=== PATIENT | female | born 1955 | race Caucasian/White ===

== ENCOUNTER 2017-10-27 07:04 | Day surgery (SDC) | payer BC ==
[2017-10-27] MEDS ORDERED: Midazolam 1 MG/ML 2 ML SDV ONE (07:38)
[2017-10-27] MEDS ORDERED: Propofol 200 MG/20 ML SDV ONE (07:38)
[2017-10-27] MEDS ORDERED: fentaNYL 100 MCG/2 ML SDV ONE (07:38)
[2017-10-27] MEDS: Lactated Ringers 1,000 ML IV SCH (07:40)
--- NOTE | 2017-10-28 08:09 | PROC ---
DATE OF PROCEDURE: 10/27/2017 INDICATION: Chela is a 62-year-old female, who comes in for screening colonoscopy. She has a history of polyps in the past. The risks and benefits were explained. The patient was taken to the OR. PROCEDURE IN DETAIL: Anesthesia was given by nurse tube dispatcher. During the procedure, we used 2 mg of Versed, 2 mcg of fentanyl, and 200 mg of propofol. The Olympus 180L scope was used to place into the rectum and advanced under direct vision and continued in the rectum with minimal difficulty. Upon retraction, the tube noted no lesions, ulceration, or abnormality throughout the entire colon. The sigmoid and rectum were unremarkable as well. The tube was removed. The patient tolerated the procedure well. PREOPERATIVE DIAGNOSIS: History of colonic polyps. POSTOPERATIVE DIAGNOSIS: Normal colon from cecum to rectum. Routine screening should be done. Jordon Butt MD /[id number]
== END 2017-10-27 10:00 | disposition home or self-care (01) ==
LOC: JP.SDS 07:04
PROVIDERS: ATTEND Internal Medicine
DX: Z12.11 Encounter for screening for malignant neoplasm of colon (principal); F17.200 Nicotine dependence, unspecified, uncomplicated; Z86.010 Personal history of colon polyps
CPT/HCPCS: J2250; J2704; J3010; J7120

== ENCOUNTER 2017-10-28 12:01 | Inpatient (IN) | payer BC ==
--- NOTE | 2017-10-28 12:40 | PCM.HP ---
H&P History of Present Illness - General Date of Service: 10/28/17 Admit Problem/Dx: Admission Diagnosis/Problem Admission Diagnosis/Problem Abdominal pain Source of Information: Patient History Limitations: Reports: No Limitations - History of Present Illness Initial Comments - Free Text/Narative: Chela had a colonoscopy yesterday which was routine. She has had pain ever since the procedure. Out patient called her this morning and had her come in. A flat plate of the abd showed free air and a CT of the abd. with IV contrast showed the problem is most likely close the the rectum most likely. She is being admitted for surgery. Onset of Symptoms: Reports: Sudden Duration of Symptoms: Reports: Hour(s): Location: Reports: Abdomen Associated Symptoms: Reports: Weakness - Related Data Allergies/Adverse Reactions: Allergies Allergy/AdvReac Type Severity Reaction Status Date / Time No Known Allergies Allergy Verified 10/25/17 13:07 Home Medications: Home Meds Simvastatin 40 mg PO DAILY 10/25/17 [History] Past Medical History HEENT History: Reports: Impaired Vision Cardiovascular History: Reports: High Cholesterol Gastrointestinal History: Reports: Colon Polyp Genitourinary History: Reports: Other (See Below) Other Genitourinary History: Self-cath Musculoskeletal History: Reports: None Hematologic History: Reports: Anemia Oncologic (Cancer) History: Reports: Cervix - Infectious Disease History Infectious Disease History: Reports: Chicken Pox, Measles, Mumps, Pertussis ( Whooping Cough) - Past Surgical History HEENT Surgical History: Reports: Adenoidectomy, Tonsillectomy Cardiovascular Surgical History: Reports: None GI Surgical History: Reports: Appendectomy, Colonoscopy Female Surgical History: Reports: Cervical Conization, Hysterectomy, Salpingo -Oophorectomy, Other (See Below) Other Female Surgeries/Procedures: Cervical radiation Musculoskeletal Surgical History: Reports: Arthroscopic Procedure Oncologic Surgical History: Reports: None Social & Family History - Tobacco Use Smoking Status *Q: Former Smoker Years of Tobacco use: 35 Packs/Tins Daily: 1.5 Used Tobacco, but Quit: Yes Month/Year Tobacco Last Used: 2001 Second Hand Smoke Exposure: No - Caffeine Use Caffeine Use: Reports: Coffee - Alcohol Use Days Per Week of Alcohol Use: 2 Number of Drinks Per Day: 6 Total Drinks Per Week: 12 - Recreational Drug Use Recreational Drug Use: No H&P Review of Systems - Review of Systems: Review Of Systems: See Below General: Reports: Weakness, Decreased Appetite HEENT: Reports: No Symptoms Pulmonary: Reports: No Symptoms Cardiovascular: Reports: No Symptoms Gastrointestinal: Reports: Distension Genitourinary: Reports: No Symptoms Musculoskeletal: Reports: No Symptoms Skin: Reports: No Symptoms Psychiatric: Reports: No Symptoms Neurological: Reports: No Symptoms Exam - Exam Exam: See Below - Exam General: Alert, Oriented, 4 HEENT: PERRLA Neck: Supple Lungs: Clear to Auscultation, Normal Respiratory Effort Cardiovascular: Regular Rate, Regular Rhythm GI/Abdominal Exam: Distended, Guarding, Rigid, Tender Extremities: Normal Inspection, Normal Range of Motion, Non-Tender, No Pedal Edema, Normal Capillary Refill Peripheral Pulses: 1+: Radial (L), Radial (R) Skin: Warm, Dry, Intact Neuro Extensive - Mental Status: Alert, Oriented x3, Normal Mood/Affect, Normal Cognition Psychiatric: Alert, Normal Affect, Normal Mood Problem List Initiated/Reviewed/Updated: Yes Orders Last 24hrs: Active Orders 24 hr Category Date Time Status Patient Status [ADT] Routine ADT 10/28/17 12:28 Ordered Leon Catheter Insertion [Insert Urinary Catheter] [OM. Care 10/28/17 12:45 Ordered PC] Q24H Height and Weight [RC] UPON Care 10/28/17 12:28 Ordered Intake and Output [RC] QSHIFT Care 10/28/17 12:31 Ordered Oxygen Therapy [RC] PRN Care 10/28/17 12:28 Ordered Urinary Catheter Assessment [RC] ASDIRECTED Care 10/28/17 12:34 Ordered VTE/DVT Education [RC] Per Unit Routine Care 10/28/17 12:28 Ordered Vital Signs [RC] Q4H Care 10/28/17 12:28 Ordered Nothing per Oral Now Diet [DIET] Diet 10/28/17 Dinner Ordered Resuscitation Status Routine Resus Stat 10/28/17 12:28 Ordered Assessment/Plan Comment:: Assessment/Plan: #1. Abd pain with free air: I have contracted Dr. Robert Hernandez who will take her to surgery and repair the wolon ruture probably in the rectal sigmoid area. #2. HLD: On simvastatin #3. 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
[2017-10-28] MEDS ORDERED: Naloxone 0.4 MG/ML SDV IV PRN (12:42)
[2017-10-28] MEDS: HYDROmorphone/Normal Saline 15 MG/30 ML PCA IV PRN (12:56)
[2017-10-28] MEDS ORDERED: Dexamethasone 4 MG/ML SDV ONE (13:17)
[2017-10-28] MEDS ORDERED: Ondansetron 4 MG/2 ML SDV ONE (13:17)
[2017-10-28] MEDS ORDERED: Glycopyrrolate 0.2 MG/ML 5 ML MDV ONE (13:17)
[2017-10-28] MEDS ORDERED: Propofol 200 MG/20 ML SDV ONE (13:17)
[2017-10-28] MEDS ORDERED: Neostigmine Methylsulfate 1 MG/ML 5 ML Syringe ONE (13:17)
[2017-10-28] MEDS ORDERED: Succinylcholine 200 MG/10 ML MDV ONE (13:17)
[2017-10-28] MEDS ORDERED: Rocuronium 50 MG/5 ML Vial ONE (13:17)
[2017-10-28] MEDS ORDERED: fentaNYL 250 MCG/5 ML SDV ONE ×2 (13:20→18:12)
[2017-10-28] MEDS ORDERED: Lactated Ringers 1,000 ML IV SCH (14:45)
[2017-10-28] MEDS: cefOXitin 2 GM in Sodium Chloride 0.9% 50 ML IV SCH ×2 (15:09→22:26)
[2017-10-28] MEDS ORDERED: Aztreonam/Dextrose-Water 1 GM in Premix Bag 1 BAG IV ONE (15:30)
[2017-10-28] MEDS ORDERED: Ketamine 500 MG/5 ML MDV IV SCH (15:30)
[2017-10-28] MEDS ORDERED: Ropivacaine 30 ML, Dexamethasone 8 MG, EPINEPHrine 0.4 MG, Sodium Chloride 0.9% 47.6 ML NERVRT SCH ×4 (15:30)
[2017-10-28] MEDS ORDERED: Lactated Ringers 1,000 ML ONE (17:55)
[2017-10-28] MEDS ORDERED: Meropenem 500 MG SDV ONE ×2 (17:57→18:20)
[2017-10-28] MEDS ORDERED: hydrOXYzine HCl 100 MG/2 ML SDV IM PRN (20:51)
[2017-10-28] MEDS: Dextrose 5%-Lactated Ringers 1,000 ML IV SCH (22:28)
[2017-10-28] MEDS ORDERED: Sodium Chloride 0.9% 0 ML ONE (23:39)
[2017-10-28] MEDS ORDERED: Sodium Chloride 0.9% 100 ML ONE (23:41)
[2017-10-28] MEDS: Pantoprazole 40 MG Vial IV SCH (23:49)
[2017-10-29] MEDS ORDERED: Aztreonam/Dextrose-Water 1 GM in Premix Bag 1 BAG IV SCH ×2
[2017-10-29] MEDS: cefOXitin 2 GM in Sodium Chloride 0.9% 50 ML IV SCH ×4 (03:10→21:30)
[2017-10-29] MEDS: HYDROmorphone/Normal Saline 15 MG/30 ML PCA IV PRN (03:52)
[2017-10-29] MEDS: Dextrose 5%-Lactated Ringers 1,000 ML IV SCH ×3 (05:44→20:25)
[2017-10-29] MEDS: Ondansetron 4 MG/2 ML SDV IVPUSH PRN ×2 (06:58→11:07)
[2017-10-29] MEDS: Aztreonam/Dextrose-Water 1 GM in Premix Bag 1 BAG IV SCH ×3 (08:05→23:45)
[2017-10-29] MEDS ORDERED: Metoclopramide 10 MG/2 ML SDV IV PRN (08:53)
[2017-10-29] MEDS: Scopolamine 1.5 MG Transdermal Patch TRDERM SCH (09:57)
[2017-10-29] MEDS: Pantoprazole 40 MG Vial IV SCH (20:45)
[2017-10-30] MEDS: cefOXitin 2 GM in Sodium Chloride 0.9% 50 ML IV SCH ×2 (03:49→08:39)
[2017-10-30] MEDS: HYDROmorphone/Normal Saline 15 MG/30 ML PCA IV PRN (07:07)
[2017-10-30] MEDS: Aztreonam/Dextrose-Water 1 GM in Premix Bag 1 BAG IV SCH ×2 (08:05→16:28)
[2017-10-30] MEDS: Dextrose 5%-Lactated Ringers 1,000 ML IV SCH ×2 (08:06→20:41)
[2017-10-30] MEDS: VERIFY SCOP PATCH TOP SCH (08:07)
--- NOTE | 2017-10-30 10:30 | PN ---
DATE OF SERVICE: 10/29/2017 The patient has been afebrile with stable vital signs, alert. Urine output has been satisfactory, but not overly high and we will leave the IV rate only at fast rate until around 6 p.m. Her creatinine is 1.7, that is what it was yesterday as well. We will just need to make sure she is getting adequate urine output. Otherwise, we will keep her n.p.o. except ice chips and sips of clear liquids for today and maximize activity and work with pulmonary toilet. We will leave Leon catheter in 1 more day just to make sure she is making satisfactory urine. Daniel Hernandez MD /[id number]
[2017-10-30] MEDS: Ampicillin/Sulbactam Na 3 GM in Sodium Chloride 0.9% 100 ML IV SCH ×2 (12:25→17:58)
[2017-10-30] MEDS ORDERED: Meperidine PF 75 MG/ML Syringe IM ONE (12:45)
[2017-10-30] MEDS ORDERED: hydrOXYzine HCl 100 MG/2 ML SDV IM ONE (12:45)
[2017-10-30] MEDS: Pantoprazole 40 MG Vial IV SCH (21:43)
[2017-10-31] MEDS: Ampicillin/Sulbactam Na 3 GM in Sodium Chloride 0.9% 100 ML IV SCH ×4 (00:30→19:36)
[2017-10-31] MEDS: Aztreonam/Dextrose-Water 1 GM in Premix Bag 1 BAG IV SCH ×3 (01:00→16:00)
[2017-10-31] MEDS ORDERED: fentaNYL 100 MCG/2 ML SDV ONE (07:07)
[2017-10-31] MEDS ORDERED: Propofol 200 MG/20 ML SDV ONE (07:07)
[2017-10-31] MEDS ORDERED: Midazolam 1 MG/ML 2 ML SDV ONE (07:07)
[2017-10-31] MEDS: Dextrose 5%-Lactated Ringers 1,000 ML IV SCH ×2 (07:10→07:11)
[2017-10-31] MEDS ORDERED: Lidocaine 1% with EPINEPHrine 1:100,000 50 ML MDV ONE (07:59)
[2017-10-31] MEDS ORDERED: Bupivacaine 0.5% 50 ML MDV ONE (07:59)
[2017-10-31] MEDS ORDERED: Meropenem 500 MG SDV ONE (08:05)
[2017-10-31] MEDS ORDERED: Ropivacaine 30 ML, Dexamethasone 8 MG, EPINEPHrine 0.4 MG, Sodium Chloride 0.9% 47.6 ML NERVRT SCH ×4 (09:00)
[2017-10-31] MEDS: VERIFY SCOP PATCH TOP SCH (09:15)
[2017-10-31] MEDS: Potassium Phosphates 22.5 MMOLE in Sodium Chloride 0.9% 250 ML IV SCH (10:54)
[2017-10-31] MEDS: HYDROmorphone/Normal Saline 15 MG/30 ML PCA IV PRN (12:46)
--- NOTE | 2017-10-31 14:56 | PN ---
DATE OF SERVICE: 10/30/2017 The patient has been afebrile with stable vital signs. Urine output has picked up. The creatinine is down a little bit at 1.5, baseline, preoperatively yesterday at 1.7. We will leave the bladder catheter in for the time being. Normally, she self-caths at home and it would be better not to have that issue being problematic next 2 to 3 days while she is in the hospital. In this case, she will not push the bowels to move and let things happen spontaneously given the radiating nature of her rectum. Otherwise, we will plan to proceed with a delayed primary closure tomorrow. The patient's cultures are growing gram-positive rods and gram-positive cocci. Gram- positive cocci is probably enterococcus or an anaerobic strep, and we will switch from cefoxitin to Unasyn to provide likely a little bit more specific coverage for that organism. The anaerobe should be covered by the Unasyn as well. Daniel Hernandez MD /[id number]
[2017-10-31] MEDS: Pantoprazole 40 MG Vial IV SCH (21:00)
[2017-11-01] MEDS: Ampicillin/Sulbactam Na 3 GM in Sodium Chloride 0.9% 100 ML IV SCH ×5 (00:01→23:54)
[2017-11-01] MEDS: Dextrose 5%-Lactated Ringers 1,000 ML IV SCH ×2 (07:48→19:33)
[2017-11-01] MEDS: Aztreonam/Dextrose-Water 1 GM in Premix Bag 1 BAG IV SCH ×4 (08:36→15:40)
--- NOTE | 2017-11-01 09:56 | PN ---
DATE OF SERVICE: 11/01/2017 SUBJECTIVE: Chela had an episode of confusion. IV was discontinued. She continues to be on ice chips until her bowels start to move. She has a bladder catheter in, does straight cath at home, so bladder catheter will be left in. History of cervical cancer. She has been up ambulating. Pain has been controlled. REVIEW OF SYSTEMS: Remainder of review of systems negative for any pertinent positives and negatives. OBJECTIVE: GENERAL: Chela Bedoya is a 62-year-old female. VITAL SIGNS: TPR last recorded at 98.8, 74, 16, and blood pressure 125/72. HEENT: Negative. NECK: Supple. HEART: Regular rate and rhythm. LUNGS: Clear. ABDOMEN: Dressings dry and intact. MIESHA drain put out 80 mL. Abdominal binder is on. EXTREMITIES: Without peripheral edema. ASSESSMENT: Delayed primary closure for open abdominal incision on 10/31/2017 and exploratory laparotomy with rectosigmoid colon resection, Daniel Hernandez MD, 10/28/2017. PLAN: 1. Discontinue Reglan. 2. Continue ice chips. 3. Restart IV and SOFT METALS ENGRAVER HAND. 4. Leon catheter to remain in due to the patient having to straight cath at home. 5. Good pulmonary toilet. 6. To call when the patient starts passing gas and has bowel movement. 7. We will evaluate p.r.n. or in a.m. Berenice Calhoun PA-C /[id number]
[2017-11-01] MEDS: HYDROmorphone/Normal Saline 15 MG/30 ML PCA IV PRN (10:51)
[2017-11-01] MEDS: Scopolamine 1.5 MG Transdermal Patch TRDERM SCH (10:54)
[2017-11-01] MEDS: VERIFY SCOP PATCH TOP SCH (12:35)
[2017-11-01] MEDS: Potassium Phosphates 22.5 MMOLE in Sodium Chloride 0.9% 250 ML IV SCH (12:52)
[2017-11-01] MEDS: Pantoprazole 40 MG Vial IV SCH (21:29)
[2017-11-02] MEDS: Aztreonam/Dextrose-Water 1 GM in Premix Bag 1 BAG IV SCH ×4 (00:31→23:37)
[2017-11-02] MEDS: Ampicillin/Sulbactam Na 3 GM in Sodium Chloride 0.9% 100 ML IV SCH ×4 (05:22→23:35)
[2017-11-02] MEDS: Dextrose 5%-Lactated Ringers 1,000 ML IV SCH (05:59)
[2017-11-02] MEDS: VERIFY SCOP PATCH TOP SCH (09:02)
[2017-11-02] MEDS: HYDROmorphone/Normal Saline 15 MG/30 ML PCA IV PRN (13:30)
--- NOTE | 2017-11-02 17:10 | PN ---
DATE OF SERVICE: 11/02/2017 SUBJECTIVE: Chela reports her pain is controlled. MIESHA drains have put out 155 and 80 respectively. She has not passed any flatus. She has been up ambulating. REVIEW OF SYSTEMS: Remainder of review of systems is negative for any pertinent positives or negatives. OBJECTIVE: GENERAL: Chela Bedoya is a 62-year-old female, alert, orientated. VITAL SIGNS: TPR 98.4, 76, 18, blood pressure 144/70. HEENT: Negative. NECK: Supple. HEART: Regular rate and rhythm. LUNGS: Clear. ABDOMEN: Dressings dry and intact. Slight distention. MIESHA drains x2. EXTREMITIES: Without peripheral edema. ASSESSMENT: 1. Delayed primary closure for open abdominal incision, 10/31/2017. 2. Exploratory laparotomy with rectosigmoid colon resection, Daniel Hernandez M.D., 10/28/2017. PLAN: 1. Continue same cares. 2. We will start diet once the patient starts having bowel movements. 3. Leon catheter remains in due to patient's history of self cathing. Berenice Calhoun PA-C /[id number]
[2017-11-02] MEDS: Pantoprazole 40 MG Vial IV SCH (21:39)
[2017-11-03] MEDS: Ampicillin/Sulbactam Na 3 GM in Sodium Chloride 0.9% 100 ML IV SCH (05:08)
[2017-11-03] MEDS: Dextrose 5%-Lactated Ringers 1,000 ML IV SCH ×2 (05:23→17:21)
--- NOTE | 2017-11-03 07:29 | PN ---
DATE OF SERVICE: 10/31/2017 The patient has had some intermittent elevated temperatures overnight in 101 range. These come down when she moves, and pulmonary toilet is improved. Abdominal exam is unremarkable, and she underwent a delayed primary closure today. The MIESHA drain in the vicinity of the anastomosis is remaining clear. She reports no flatus or bowel movement as of yet. She had some nausea yesterday, which has now cleared. Labs show a creatinine down to 1.0, potassium is marginally low at 3.4, and we will give her some potassium phosphate today. Recheck some labs tomorrow. This is a case with irradiated bowel in the pelvis and will not push the GI tract, but let things pretty much open up on their own without any specific stimulation to give things as much time to heal as possible before stool is required to go through that anastomosis. Daniel Hernandez MD /[id number]
[2017-11-03] MEDS ORDERED: Magnesium Hydroxide 400 MG/5 ML Susp 30 ML Cup PO ONE (08:30)
--- NOTE | 2017-11-03 08:38 | PN ---
DATE OF SERVICE: 11/03/2017 SUBJECTIVE: Chela has not passed any flatus. Pain is controlled. She has been up ambulating. States she is feeling better every day. Vital signs have been stable. OBJECTIVE: GENERAL: Chela Bedoya is a 62-year-old female. VITAL SIGNS: TPR is 98.8, 66, 18, blood pressure 140/72. HEENT: Negative. NECK: Supple. HEART: Regular rate and rhythm. LUNGS: Clear. ABDOMEN: Dressings dry and intact. She has Aquacel and MIESHA drain put out 180, and MIESHA drain 2 put out 3 mL of light pink serosanguineous drainage. Remains to have Leon catheter in. Output was 2400. Leon catheter will remain in due to continued history of straight cathing due to prior medical condition. EXTREMITIES: Without peripheral edema and SCDs are on. ASSESSMENT: 1. Delayed primary closure for open abdominal incision on 10/31/2018. 2. Exploratory laparotomy with rectosigmoid colon resection, Dr. Daniel Hernandez on 10/28/2017. PLAN: 1. Discontinue Aquacel dressing. 2. Discontinue Unasyn. 3. Discontinue Azactam. 4. Mild of magnesia 30 mL now. 5. Dulcolax 2 tablets 1 hour after milk of magnesia. 6. Senna Plus two at bedtime. 7. Ensure Clear t.i.d. daily. 8. May have popsicle or fruit ice. 9. Good pulmonary toilet. 10.We will evaluate p.r.n. or in a.m. Berenice Calhoun PA-C /[id number]
[2017-11-03] MEDS ORDERED: Bisacodyl 5 MG Tab PO ONE (09:30)
[2017-11-03] MEDS: VERIFY SCOP PATCH TOP SCH (10:00)
[2017-11-03] MEDS: HYDROmorphone/Normal Saline 15 MG/30 ML PCA IV PRN (13:21)
[2017-11-03] MEDS: Ondansetron 4 MG/2 ML SDV IVPUSH PRN (14:29)
[2017-11-03] MEDS: Pantoprazole 40 MG Vial IV SCH (20:49)
[2017-11-03] MEDS ORDERED: Sodium Chloride 0.9% 10 ML Syringe FLUSH PRN (20:52)
[2017-11-03] MEDS ORDERED: diphenhydrAMINE 50 MG/ML SDV IVPUSH PRN (22:41)
[2017-11-04] MEDS: Dextrose 5%-Lactated Ringers 1,000 ML IV SCH ×2 (03:17→13:37)
[2017-11-04] MEDS: HYDROmorphone/Normal Saline 15 MG/30 ML PCA IV PRN (06:45)
[2017-11-04] MEDS ORDERED: Morphine PF 150 MG/30 ML PCA Syringe IV PRN (08:56)
[2017-11-04] MEDS ORDERED: Naloxone 0.4 MG/ML SDV IV PRN (08:56)
[2017-11-04] MEDS ORDERED: methylPREDNISolone Sodium Succinate 40 MG/1 ML SDV IVPUSH ONE (09:00)
[2017-11-04] MEDS: Scopolamine 1.5 MG Transdermal Patch TRDERM SCH (10:04)
[2017-11-04] MEDS: Bisacodyl 5 MG Tab PO SCH ×2 (10:05→22:03)
[2017-11-04] MEDS: VERIFY SCOP PATCH TOP SCH (10:06)
[2017-11-04] MEDS: Magnesium Sulfate/Water 2 GM in Premix Bag 1 BAG IV SCH ×3 (10:24→22:07)
[2017-11-04] MEDS: Potassium Chloride 20 MEQ, Lidocaine 1% 2 ML in Sodium Chloride 0.9% 100 ML IV SCH ×3 (10:24→16:19)
--- NOTE | 2017-11-04 11:33 | PN ---
DATE OF SERVICE: 11/04/2017 SUBJECTIVE: 1. Chela has not passed any flatus. She did have a bowel stimulation yesterday. 2. She has a rash on her abdomen, chest, and back, pruritic. 3. Hemoglobin 9.1, potassium 3.0, magnesium is 1.5. CURRENT MEDICATIONS: Reviewed. She is on a Dilaudid ABA TUTOR and has not been taking the Flexeril. REVIEW OF SYSTEMS: Remainder of review of systems negative for any pertinent positives and negatives. OBJECTIVE: GENERAL: Chela Bedoya is a pleasant 62-year-old female. She is alert and orientated. Color pale. VITAL SIGNS: TPR 98.2, 73, 16, blood pressure 121/57. HEENT: Negative. NECK: Supple. HEART: Regular rate and rhythm. LUNGS: Clear. ABDOMEN: Fine, pink raised papular warm rash noted on abdomen, a little bit up on the chest and back area of the abdominal binder, pruritic. Karlos intact. MIESHA drains intact and have drained 75 mL and 2 mL respectively. EXTREMITIES: Without peripheral edema. ASSESSMENT: 1. Delayed primary closure for open abdominal incision on 10/31/2018. 2. Exploratory laparotomy with rectosigmoid colon resection by Daniel Hernandez, Surgeon, on 10/28/2017. 3. Pruritic rash, abdomen and back. PLAN: 1. Discontinue Dilaudid ABA TUTOR. 2. Start morphine sulfate ABA TUTOR. 3. Solu-Medrol 80 mg IV one time. 4. Put abdominal binder over clothing. 5. Rx KCl 60 mEq with lidocaine in 3 divided doses. 6. Magnesium 2 g q.6 hours x72 hours. 7. May have coffee with milk in it. She usually has 2 cups a day to keep her bowels regular. 8. Good pulmonary toilet. 9. We will evaluate p.r.n. or the in a.m. Berenice Calhoun PA-C /[id number]
[2017-11-04] MEDS: Pantoprazole 40 MG Vial IV SCH (22:04)
[2017-11-05] MEDS: Dextrose 5%-Lactated Ringers 1,000 ML IV SCH ×3 (02:05→22:36)
[2017-11-05] MEDS: Magnesium Sulfate/Water 2 GM in Premix Bag 1 BAG IV SCH ×4 (04:49→21:53)
[2017-11-05] MEDS: Bisacodyl 5 MG Tab PO SCH ×2 (08:54→21:52)
[2017-11-05] MEDS: VERIFY SCOP PATCH TOP SCH (08:56)
[2017-11-05] MEDS ORDERED: Magnesium Citrate Solution 296 ML Bottle PO ONE (09:00)
[2017-11-05] MEDS: Ondansetron 4 MG/2 ML SDV IVPUSH PRN ×2 (17:53→21:48)
[2017-11-05] MEDS: Pantoprazole 40 MG Vial IV SCH (21:52)
[2017-11-06] MEDS: Magnesium Sulfate/Water 2 GM in Premix Bag 1 BAG IV SCH ×2 (04:39→10:01)
[2017-11-06] MEDS: Cyclobenzaprine 10 MG Tab PO PRN ×2 (04:44→18:35)
[2017-11-06] MEDS: Ondansetron 4 MG/2 ML SDV IVPUSH PRN (04:52)
[2017-11-06] MEDS: Dextrose 5%-Lactated Ringers 1,000 ML IV SCH (07:16)
[2017-11-06] MEDS: VERIFY SCOP PATCH TOP SCH (08:06)
[2017-11-06] MEDS: Bisacodyl 5 MG Tab PO SCH ×2 (08:07→20:25)
[2017-11-06] MEDS ORDERED: Bisacodyl 10 MG Supp RECTAL ONE ×2 (09:00→15:00)
[2017-11-06] MEDS ORDERED: Metoclopramide 10 MG/2 ML SDV IVPUSH SCH (10:00)
[2017-11-06] MEDS ORDERED: HYDROmorphone 2 MG Tab PO PRN (10:53)
[2017-11-06] MEDS ORDERED: diphenhydrAMINE 25 MG Cap PO PRN (10:56)
[2017-11-06] MEDS: Acetaminophen/HYDROcodone 325-5 MG Tab PO PRN ×3 (12:11→20:25)
--- NOTE | 2017-11-06 13:58 | PN ---
DATE OF SERVICE: 11/06/2017 The patient has become fairly distended, but not any real nausea, passing some flatus. No bowel movement as of yet. At this point, we will give her Dulcolax suppository today x2 as needed and some Reglan. We would check some labs in the morning. Otherwise, maximize activity and work with pulmonary toilet. Daniel Hernandez MD /[id number]
[2017-11-06] MEDS ORDERED: Metoclopramide 10 MG Tab PO PRN (16:00)
[2017-11-06] MEDS: Pantoprazole 40 MG Tab.CR PO SCH (20:25)
[2017-11-07] MEDS: Acetaminophen/HYDROcodone 325-5 MG Tab PO PRN ×4 (03:04→19:16)
[2017-11-07] MEDS: VERIFY SCOP PATCH TOP SCH (09:15)
[2017-11-07] MEDS: Scopolamine 1.5 MG Transdermal Patch TRDERM SCH (09:15)
--- NOTE | 2017-11-07 10:16 | OR ---
DATE OF PROCEDURE: 10/28/2017 PREOPERATIVE DIAGNOSIS: Intraperitoneal free air, status post recent colonoscopy. POSTOPERATIVE DIAGNOSES: 1. Rectal perforation, status post colonoscopy. 2. Pelvic abscess. 3. Marked distention of proximal colon. OPERATIVE PROCEDURES: Exploratory laparotomy with: 1. Rectosigmoid resection with coloproctostomy (41632). 2. Drainage of pelvic abscess (38546). 3. Colotomy for decompression of proximal colon of air and stool (06065). 4. Mobilization of omentum into pelvis to minimize secondary adhesion formation between pelvic and abdominal wall and underlying viscera (07793). ANESTHESIA: General. SAFETY INTERN: RAFITA Bird. INDICATION FOR PROCEDURE: This is a 62-year-old status post a colonoscopy yesterday, presenting with some increasing abdominal pain. On plain x-ray and subsequent CT scan she was noted to have free air with some fluid in the pelvis. The patient is status post pelvic radiation for cervical cancer and that probably is a predisposing event with regard to the perforation as the report by all accounts of the colonoscopy was otherwise very uncomplicated. Plan is to proceed with an exploratory laparotomy with procedures as indicated, most likely a colon and/or rectal excision. One would anticipate the level of perforation would be high enough that a primary anastomosis could be undertaken as the first area of curvature and the rectum would be well above the level that one could not do a primary anastomosis. However, the patient is aware of possible need for colostomy based on operative findings and otherwise potential risks including bleeding, infection, leaks from GI tract closures or anastomosis as well as possibility of cardiopulmonary, septic, or hemorrhagic complications leading to were all discussed, and the patient wishes to proceed. DETAILS OF PROCEDURE: The patient was taken to the operating room and placed in a supine position. After general endotracheal anesthesia was induced, bilateral transversus abdominis plane blocks were placed with ultrasound guidance centered over the mid abdomen. This was done with standard solution. Initially, a midline incision from the umbilicus down to the pubis was made and this was subsequently extended somewhat higher to provide adequate exposure. As one entered the peritoneal cavity, some air was identified along with some thin white-stained fluid. Culture of this was obtained. As one then dissected down toward the pelvis, there was a well-defined pelvic abscess. At this point, this was a much thicker purulent material and this was evacuated and sent for culture. The patient was noted to have an obvious perforation in the mid rectum, probably one of the natural angulations of the rectum at that level. The remainder of the colon was quite distended with the transverse colon and cecum, especially being quite massively distended likely related to retained air following the colonoscopy as well as swallowed air over the subsequent 24 hours and relative lack of motility through the rectum. At this point, the mid sigmoid colon was divided with the KRISTOPHER stapler. Dissection was then began along the level of the mesentery on each side downward towards the rectum. The mesentery underlying the distal sigmoid colon and rectum were divided with a combination of vascular mesenteric loads. Once the mesenteric dissection extended somewhat below the level of the perforation, the area below the perforation where the rectum had become relatively soft and noninflamed was divided with a curved KRISTOPHER black load and the distal sigmoid colon and rectum specimen delivered from the field. The port site perforation was with suture to aid identification by the pathologist. At this point, it appeared that a 28 mm EEA stapler could be managed into the sigmoid colon as well as rectum. Divided end of the sigmoid colon was opened and the anvil of a 28 mm EEA stapler passed into the lumen, it was then re-stapled with purple load and the anvil of the shaft brought out through the most dependent portion of the sigmoid colon through the anus, then the main body of the EEA stapler was brought up to the apex of the divided rectum, two components of stapler united and stapler fired, thus creating the coloproctostomy. Upon removal of stapler, double donuts of mucosa were noted within it. The area was then flooded with antibiotic-containing saline solution and while the sigmoid colon was being compressed, the colonoscope was then entered into the rectum and the anastomosis visualized, and with air being insufflated, no bubbles were seen. The scope was then withdrawn and the air evacuated from the rectum as it was removed. The coloproctostomy was then reinforced with some 3-0 Vicryl seromuscular stitch along with 4 mL of fibrin sealant. The proximal colon was noted to be quite distended, which would make closure somewhat difficult, but also probably put the anastomosis somewhat at risk as it would likely be flooded with air and stool in the ensuing day or so. Given this, a small colotomy in the transverse colon was made, and air were then evacuated from the transverse colon as well as cecum. Those areas were then well decompressed. Colotomy was then closed with a KRISTOPHER purple load in transverse orientation and that staple line then also reinforced with 3-0 Vicryl seromuscular stitch. At this point, no further problems were noted. The Brandan-Pritchett drain was brought out through the right mid abdomen, taken down into the depths of the pelvis and ended up by the anastomosis to prevent small-bowel adhesions from forming into the pelvis and abdominal wall. The omentum was then mobilized downward into the pelvis and sutured there with some 3- 0 Vicryl stitch. The midline fascia was then approximated with #2 Vicryl stitch and the skin and subcutaneous tissue were felt to be high risk for wound infection and were packed open for a planned delayed primary closure between 48 to 72 hours. The patient was taken to the recovery room in satisfactory condition. There were no evident complications. Daniel Hernandez MD /[id number]
--- NOTE | 2017-11-07 10:32 | OR ---
DATE OF PROCEDURE: 10/31/2017 PREOPERATIVE DIAGNOSIS: Open abdominal incision. POSTOPERATIVE DIAGNOSIS: Open abdominal incision. PROCEDURE: Delayed primary closure of open abdominal incision. ANESTHESIA: IV sedation plus local. INDICATION FOR PROCEDURE: The patient is status post a rectosigmoid resection with drainage of pelvic abscess last Tuesday. She is felt to be at high risk for wound infection and primary closure was undertaken. Given this, the wound was packed open for a planned delayed primary closure at this time. Potential risks of the procedure including bleeding and infection were reviewed, and the patient wishes to proceed. DETAILS OF PROCEDURE: The patient was taken to the operating room and placed in a supine position with the head up roughly 30 degrees to minimize aspiration risk. The end of the main dressing was taken down, bilateral subcostal transverse abdominis plane blocks were then placed using continuous ultrasound guidance and the standard solution bilaterally. The remainder of the incision taken down and the incision site was found to be. This area was then prepped and draped, anesthetized with 1% lidocaine mixed with Marcaine and irrigated with meropenem-containing saline solution. The subcutaneous tissue was then approximated with some 3-0 and 4-0 Vicryl stitch deep and the skin with julio. Dressing was applied. The patient was taken to the recovery room in satisfactory condition. Daniel Hernandez MD /[id number]
--- NOTE | 2017-11-07 13:31 | PN ---
DATE OF SERVICE: 11/05/2017 The patient has been afebrile with stable vital signs. She thinks she is beginning to pass some flatus. No bowel movement as of yet. Plan will be to give her magnesium citrate today, in addition to Dulcolax oral tablets, as we are now more than a week out from surgery, and the anastomosis at this point likely should be fairly well healed. Daniel Hernandez MD /[id number]
--- NOTE | 2017-11-07 13:41 | PN ---
DATE OF SERVICE: 11/07/2017 SUBJECTIVE: Chela did have 7 bowel movements yesterday. Oral intake was 1080. She had 260 out of MIESHA drain. Reports pain is controlled. REVIEW OF SYSTEMS: Negative for any other pertinent positives and negatives. OBJECTIVE: GENERAL: Chela Bedoya is a 62-year-old female. She is alert and orientated. Color, pale. VITAL SIGNS: TPR is 98.1, 74, 14, and blood pressure 119/65. HEENT: Negative. NECK: Supple. HEART: Regular rate and rhythm. LUNGS: Clear. ABDOMEN: Soft. Karlos intact. MIESHA drain intact. Remains to have a Leon catheter in. She self caths at home, status post cervical cancer. EXTREMITIES: Without peripheral edema. ASSESSMENT: 1. Delayed primary closure for open abdominal incision, 10/31/2017. 2. Exploratory laparotomy with rectosigmoid colon resection by Daniel Hernandez, Surgeon, on 10/28/2017. 3. Pruritic rash, abdomen and back, resolved. PLAN: 1. Discontinue Dulcolax oral tabs. 2. Regular diet. 3. Discontinue karlos. 4. Check UA and UC before catheter is removed. 5. Discontinue Leon catheter. May resume straight cath. 6. Discontinue MIESHA drains. 7. Plan discharge in a.m. Berenice Calhoun PA-C /[id number]
[2017-11-07] MEDS: Pantoprazole 40 MG Tab.CR PO SCH (21:27)
[2017-11-08] MEDS: Acetaminophen/HYDROcodone 325-5 MG Tab PO PRN (08:43)
[2017-11-08] MEDS: VERIFY SCOP PATCH TOP SCH (08:49)
[2017-11-08] MEDS ORDERED: Scopolamine 1.5 MG Transdermal Patch TRDERM ONE (09:30)
--- NOTE | 2017-11-08 15:09 | DISCH ---
FINAL DIAGNOSIS: Rectal perforation status post colonoscopy associated with pelvic abscess and marked distention of proximal colon. SECONDARY DIAGNOSIS: History of pelvic radiation treatment for cervical carcinoma. OPERATIVE PROCEDURES: 1. On 10/28, exploratory laparotomy with one rectosigmoid resection with coloproctostomy. 2. Drainage of pelvic abscess. 3. Colotomy for decompression of proximal colon of air and stool. 4. Mobilization of omentum within the pelvis to minimize secondary adhesion formation between pelvic, abdominal wall and underlying viscera. 5. On 10/31, was a delayed primary closure of abdominal incision. HOSPITAL COURSE: This is a 62-year-old female with ongoing routine colonoscopy and then the following day presented with increasing abdominal pain and free air and subsequent CT scan showed what appeared to be most likely rectal perforation. At the time of the exploration, she was noted to have a perforation, more or less in the 1st curvature of the rectum with associated pelvic abscess. The patient underwent rectosigmoid resection and drainage of the abscess. The proximal colon was quite distended and that was decompressed as well and the incision was left open and was closed. On postop day 3, she has had delayed primary closure. It took a while for her GI tract function to recover, but presently she is eating well, moving her bowels and tolerating oral pain medicine. We feel that the rectal perforation is likely related to the patient previously having had the pelvic radiation. As by all accounts, the colonoscopy was quite an uneventful procedure per se. The patient will be discharged home with a continuation of home medications plus Daisetta 5/325 one to two tabs q.4 hours p.r.n. pain, #50. Senna Plus 2 tablets p.o. b.i.d. x1 month and then p.r.n. She has a scopolamine patch, which will be replaced and will be removed in 4 days[address] Follow up with Dr. Hernandez at [facility] on 11/16/2017. INSTRUCTIONS: Diet will be regular and she has been instructed to avoid lifting more than 10 pound for four weeks postoperatively.
== END 2017-11-08 10:20 | disposition home or self-care (01) | DRG 221 ==
LOC: JP.MS 12:01
PROVIDERS: ADMIT Internal Medicine; ATTEND Surgery
PROC: 0DBN0ZX Excision of Sigmoid Colon, Open Approach, Diagnostic (ICD-10-PCS; principal; 2017-10-28)
PROC: 0DBP0ZX Excision of Rectum, Open Approach, Diagnostic (ICD-10-PCS; 2017-10-28)
PROC: 0W9G0ZX Drainage of Peritoneal Cavity, Open Approach, Diagnostic (ICD-10-PCS; 2017-10-28)
PROC: 0D9E8ZZ Drainage of Large Intestine, Via Natural or Artificial Opening Endoscopic (ICD-10-PCS; 2017-10-28)
PROC: 0DNU0ZZ Release Omentum, Open Approach (ICD-10-PCS; 2017-10-28)
PROC: 3E0T3BZ Introduction of Anesthetic Agent into Peripheral Nerves and Plexi, Percutaneous Approach (ICD-10-PCS; 2017-10-28)
PROC: 0D1N0ZP Bypass Sigmoid Colon to Rectum, Open Approach (ICD-10-PCS; 2017-10-28)
PROC: 0WQF0ZZ Repair Abdominal Wall, Open Approach (ICD-10-PCS; 2017-10-31)
PROC: 3E0T3BZ Introduction of Anesthetic Agent into Peripheral Nerves and Plexi, Percutaneous Approach (ICD-10-PCS; 2017-10-31)
DX: K63.1 Perforation of intestine (nontraumatic) (principal); K65.1 Peritoneal abscess; K63.89 Other specified diseases of intestine; Z85.41 Personal history of malignant neoplasm of cervix uteri; Z92.3 Personal history of irradiation; E78.5 Hyperlipidemia, unspecified; Z87.891 Personal history of nicotine dependence; H54.7 Unspecified visual loss; L29.9 Pruritus, unspecified; Z48.1 Encounter for planned postprocedural wound closure
CPT/HCPCS: 36415; 51702; 74021; 74021-26; 74177; 74177-26; 80048; 80053; 81001; 83735; 84100; 84443; 85025; 85027; 87070; 87075; 87077; 87205; 88307; 94762; A9270-GY; C9113; J0171; J0295; J0330; J0694; J1100; J1170; J1200; J2175; J2185; J2250; J2270; J2405; J2704; J2710; J2795; J2920; J3010; J3410; J3475; J3480; J3490; J7030; J7042; J7050; J7120; Q9967; S0073

== ENCOUNTER 2019-09-13 07:43 | Day surgery (SDC) | payer BC ==
[2019-09-13] MEDS ORDERED: Midazolam 1 MG/ML 2 ML SDV ONE (08:28)
[2019-09-13] MEDS ORDERED: fentaNYL 100 MCG/2 ML SDV ONE (08:28)
[2019-09-13] MEDS ORDERED: Propofol 200 MG/20 ML SDV ONE (08:28)
[2019-09-13] MEDS ORDERED: Dextrose 5%-Lactated Ringers 1,000 ML IV SCH (08:30)
--- NOTE | 2019-09-17 13:21 | OR ---
DATE OF PROCEDURE: 09/13/2019 SURGEON: Daniel Hernandez MD PREOPERATIVE DIAGNOSIS: Change in bowel habits. POSTOPERATIVE DIAGNOSIS: Normal colonoscopic examination, status post sigmoid colon resection. OPERATIVE PROCEDURE: Flexible colonoscopy. ANESTHESIA: IV sedation. INDICATIONS FOR PROCEDURE: The patient is status post a perforation during a colonoscopy 3 years ago, requiring a sigmoid colon resection. This is likely contributed by a history of previous pelvic radiation for cervical carcinoma. She has generally been doing well, but there was some narrowing of her stools and was concerned about possible pathologic changes causing that. Plan is to proceed with flexible colonoscopy with biopsies and/or polypectomy as indicated, as well as possible dilation of the strictures identified. Potential risks including bleeding and perforation were reviewed, and the patient wishes to proceed. DETAILS OF PROCEDURE: The patient was taken to the operating room, placed in a left lateral decubitus position. IV sedation was administered, after which the initial digital rectal exam was performed that was unremarkable. Colonoscope was then passed into the rectum with retroflexion revealing uncomplicated hemorrhoidal columns. Scope was eventually passed to the cecum. The area of the anastomosis and the rectosigmoid area was noted to be widely open. Apart from that, no additional abnormalities were noted. Specifically, there were no areas of diverticulosis, no areas of colitis, and no polyps or other signs of neoplasia. The scope was then withdrawn. Prep was generally quite good, and the patient was taken to the recovery room in satisfactory condition. Given the patient has history of polyps herself, she should be on a 5-year cycle for colonoscopy. Her next colonoscopy should be scheduled in 5 years. Daniel Hernandez MD /[id number]
== END 2019-09-13 10:55 | disposition home or self-care (01) ==
LOC: JP.SDS 07:43
PROVIDERS: ATTEND Surgery
DX: R19.4 Change in bowel habit (principal); K64.9 Unspecified hemorrhoids; E78.5 Hyperlipidemia, unspecified; Z90.49 Acquired absence of other specified parts of digestive tract
CPT/HCPCS: 45378; J2250; J2704; J3010; J7121

== ENCOUNTER 2021-04-19 08:31 | Emergency (ER) | payer BC ==
--- NOTE | 2021-04-19 09:15 | EDM.PDOC ---
ED HPI GENERAL MEDICAL PROBLEM - General Chief Complaint: Genitourinary Problem Stated Complaint: POSSIBLE UTI Time Seen by Provider: 04/19/21 09:00 Source of Information: Reports: Patient History Limitations: Reports: No Limitations - History of Present Illness INITIAL COMMENTS - FREE TEXT/NARRATIVE: 66-year-old female that tends to get recurring UTIs due to self-catheterization. She developed dysuria, hematuria, and urgency 5 hours ago which are typical symptoms for her when she gets a UTI. Slight right lower back discomfort but no flank pain, no fevers or chills, no nausea or vomiting. 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: Reports: Other (see below) (She took a dose of Pyridium prior to coming in) - Related Data Allergies Allergy/AdvReac Type Severity Reaction Status Date / Time Sulfa (Sulfonamide Allergy Hives Verified 04/19/21 08:58 Antibiotics) Home Meds: Home Meds Simvastatin 40 mg PO BEDTIME 10/25/17 [History] Past Medical History HEENT History: Reports: Impaired Vision Cardiovascular History: Reports: High Cholesterol Gastrointestinal History: Reports: Colon Polyp, Other (See Below) Other Gastrointestinal History: perferation in colon in 2018 Genitourinary History: Reports: Other (See Below) Other Genitourinary History: Self-cath Musculoskeletal History: Reports: None Hematologic History: Reports: Anemia Oncologic (Cancer) History: Reports: Cervix - Infectious Disease History Infectious Disease History: Reports: Chicken Pox, Measles, Mumps - Past Surgical History HEENT Surgical History: Reports: Adenoidectomy, Tonsillectomy Cardiovascular Surgical History: Reports: None GI Surgical History: Reports: Appendectomy, Colon, Colonoscopy, Other (See Below) Other GI Surgeries/Procedures: repair of colon perferation Female Surgical History: Reports: Cervical Conization, Hysterectomy, Salpingo-Oophorectomy, Other (See Below) Other Female Surgeries/Procedures: Cervical radiation Musculoskeletal Surgical History: Reports: Arthroscopic Procedure, Other (See Below) Other Musculoskeletal Surgeries/Procedures:: acl repair right knee Oncologic Surgical History: Reports: None Social & Family History - Family History Family Medical History: No Pertinent Family History - Tobacco Use Tobacco Use Status *Q: Former Tobacco User Used Tobacco, but Quit: Yes Month/Year Tobacco Last Used: 2001 - Caffeine Use Caffeine Use: Reports: Coffee - Recreational Drug Use Recreational Drug Use: No ED ROS GENERAL - Review of Systems Review Of Systems: See Below Constitutional: Denies: Fever, Chills HEENT: Reports: No Symptoms Respiratory: Denies: Shortness of Breath Cardiovascular: Denies: Chest Pain GI/Abdominal: Denies: Abdominal Pain : Reports: Dysuria, Frequency, Hematuria, Urgency Musculoskeletal: Reports: Other (A small amount of right lower back discomfort) Skin: Reports: No Symptoms Neurological: Denies: Headache ED EXAM, RENAL/ - Physical Exam Exam: See Below Exam Limited By: No Limitations General Appearance: Alert, No Apparent Distress Head: Atraumatic Respiratory/Chest: No Respiratory Distress GI/Abdominal: Soft, Non-Tender Back Exam: No: CVA Tenderness (R), CVA Tenderness (L) Neurological: Alert, Oriented Psychiatric: Normal Affect, Normal Mood Skin Exam: Warm, Dry Course - Vital Signs Last Recorded V/S: Last Vital Signs Temp 98.6 F 04/19/21 08:51 Pulse 85 04/19/21 08:51 Resp 16 04/19/21 08:51 BP 156/88 H 04/19/21 08:51 Pulse Ox 97 04/19/21 08:51 - Orders/Labs/Meds Orders: Active Orders 24 hr Category Date Time Status CULTURE URINE [RM] Stat Lab 04/19/21 09:18 Received Labs: Laboratory Tests 04/19/21 Range/Units 08:48 Urine Color Davis A (YELLOW) Urine Appearance Cloudy A (CLEAR) Urine RBC Packed H (0-5) Urine WBC 20-30 H (0-5) Ur Epithelial Cells Not seen Amorphous Sediment Rare Urine Bacteria Moderate Urine Mucus Rare Urine Other - Re-Assessments/Exams Free Text/Narrative Re-Assessment/Exam: 04/19/21 09:15 A UA was ordered. 04/19/21 09:18 UA was significantly abnormal with RBCs, WBCs and bacteria. A culture was initiated and the patient was placed on Macrobid twice daily for 7 days. We will be in touch with her with culture results if it warrants a change in treatment. She can also return anytime if worsening such as fever, vomiting the medication, or other concerns. Departure - Departure Time of Disposition: 09:26 Disposition: Home, Self-Care 01 Clinical Impression: UTI, Urinary tract infectious disease - Discharge Information Instructions: Urinary Tract Infection, Adult Referrals: Kee Gtz MD [Primary Care Provider] - Forms: ED Department Discharge Care Plan Goals: Take the antibiotic twice daily for 7 days, return anytime if worsening such as fever, vomiting the medication, or other concerns. We will be in contact with you if a change in antibiotic is needed based on culture results. Consider rechecking in 3 or 4 days if not improving satisfactorily. Sepsis Event Note (ED) - Evaluation Sepsis Screening Result: No Definite Risk - Focused Exam Vital Signs: Vital Signs Temp Pulse Resp BP Pulse Ox 04/19/21 08:51 98.6 F 85 16 156/88 H 97 - My Orders Last 24 Hours: My Active Orders 04/19/21 09:18 CULTURE URINE [RM] Stat - Assessment/Plan Last 24 Hours: My Active Orders 04/19/21 09:18 CULTURE URINE [RM] Stat
== END 2021-04-19 09:26 | disposition home or self-care (01) ==
LOC: JP.ED 08:31
DX: N39.0 Urinary tract infection, site not specified (principal); E78.00 Pure hypercholesterolemia, unspecified; Z87.891 Personal history of nicotine dependence; Z88.2 Allergy status to sulfonamides; Z79.899 Other long term (current) drug therapy
CPT/HCPCS: 81001; 87086; 99283

== ENCOUNTER 2022-05-24 07:27 | Day surgery (SDC) | payer BC, MEDICARE ==
[~2022-05-24 07:27] MED LIST: Midazolam 1 MG/ML 2 ML SDV ONE; Propofol 200 MG/20 ML SDV ONE; fentaNYL 50 MCG/ML SDV ONE
[2022-05-24] MEDS ORDERED: Dextrose 5%-Lactated Ringers 1,000 ML IV SCH (08:00)
== END 2022-05-24 13:25 | disposition home or self-care (01) ==
LOC: JP.SDS 07:27
PROVIDERS: ATTEND Surgery
DX: R19.5 Other fecal abnormalities (principal); K64.8 Other hemorrhoids; Z80.0 Family history of malignant neoplasm of digestive organs; Z79.899 Other long term (current) drug therapy; Z88.2 Allergy status to sulfonamides
CPT/HCPCS: 45378; J2250; J2704; J3010; J7121

== ENCOUNTER 2023-03-04 09:42 | Emergency (ER) | payer MEDICARE ==
[2023-03-04] MEDS ORDERED: Sodium Chloride 0.9% 10 ML Syringe FLUSH PRN (10:42)
[2023-03-04 10:57] LABS: BASOPHILS PERCENT AUTO 0.3 % (0.1-1.3); EOSINOPHILS ABSOLUTE AUTO 0.03 K/uL (0.00-0.40); EOSINOPHILS PERCENT AUTO 0.5 % (0.0-5.4); HEMATOCRIT 40.3 % (34.3-46.0); IMMATURE GRAN PERCENT AUTO 0.2 % (0.0-0.7); LYMPHOCYTES ABSOLUTE AUTO 1.41 K/uL (0.8-3.3); LYMPHOCYTES PERCENT AUTO 22.5 % (11.4-47.7); MEAN CORPUSCULAR HEMOGLOBIN 33.3 pg (31.6-35.5); MEAN CORPUSCULAR HGB CONC 34.7 g/dL (31.6-35.5); MEAN CORPUSCULAR VOLUME 95.7 fL (81.4-99.0); MONOCYTES PERCENT AUTO 9.6 % (3.3-12.6); NEUTROPHILS PERCENT AUTO 66.9 % (40.0-78.1); PLATELET COUNT,PLT 320 K/uL (130-375); RED BLOOD CELL COUNT 4.21 M/uL (3.77-5.24); WHITE BLOOD CELL COUNT,WBC 6.3 K/uL (3.2-11.0)
[2023-03-04] MEDS ORDERED: Iopamidol 612 MG/ML 500 ML Multipack Bottle IV ONE (11:05)
[2023-03-04] MEDS ORDERED: Sodium Chloride 0.9% 10 ML Syringe FLUSH ONE (11:05)
[2023-03-04 11:07] LABS: BASOPHILS ABSOLUTE AUTO 0.02 K/uL (0.00-0.10); IMMATURE GRAN ABSOLUTE AUTO 0.01 K/uL (0.00-0.23)
[2023-03-04 11:10] LABS: APPEARANCE,URINE CLOUDY (CLEAR); BILIRUBIN,URINE NEGATIVE (NEGATIVE); COLOR,URINE YELLOW (YELLOW); GLUCOSE,URINE NEGATIVE (NEGATIVE); KETONES,URINE NEGATIVE (NEGATIVE); LEUKOCYTE ESTERASE,URINE LARGE (NEGATIVE); NITRITE,URINE POSITIVE (NEGATIVE); OCCULT BLOOD,URINE MODERATE (NEGATIVE); PH,URINE 5.5 (5.0-8.0); PROTEIN,URINE 30 mg/dL (NEGATIVE); UROBILINOGEN,URINE 0.2 EU/dL (0.2-1.0)
[2023-03-04] MEDS ORDERED: Sodium Chloride 0.9% 50 ML IV SCH (11:15)
[2023-03-04 11:17] LABS: AMORPHOUS SEDIMENT,URINE NOT SEEN; BACTERIA,URINE MANY; EPITHELIAL CELLS,URINE FEW; MUCUS,URINE FEW; RBC,URINE 20-30 (0-5); WBC,URINE 50-75 (0-5)
[2023-03-04 11:28] LABS: A/G RATIO 0.9 (1.2-2.2); ALANINE AMINOTRANSFERASE,ALT 15 U/L (12-78); ALBUMIN 3.8 g/dL (3.4-5.0); ALKALINE PHOSPHATASE 88 U/L (46-116); ASPARTATE AMNIOTRANSFERASE,AST 15 U/L (15-37); BILIRUBIN TOTAL 0.5 mg/dL (0.2-1.0); BLOOD UREA NITROGEN,BUN 20 mg/dL (7-18); CARBON DIOXIDE,CO2 24 mmol/L (21-32); CHLORIDE,CL 98 mmol/L (100-108); CREATININE 1.5 mg/dL (0.6-1.0); EST CRCL DRUG DOSING (CG) 33.65 mL/min; ESTIMATED GFR 38 mL/min (>60); GLUCOSE RANDOM 97 mg/dL (74-106); PROTEIN TOTAL,TP 7.9 g/dL (6.4-8.2); SODIUM,NA 135 mmol/L (140-148)
[2023-03-04 11:29] LABS: MAGNESIUM 1.7 mg/dL (1.8-2.4); TSH ULTRASENSITIVE 1.243 uIU/mL (0.358-3.740)
[2023-03-04] MEDS ORDERED: cefTRIAXone 1 GM in Sodium Chloride 0.9% 50 ML IV ONE (11:42)
[2023-03-04] MEDS ORDERED: Sodium Chloride 0.9% 1,000 ML IV ONE (11:43)
[2023-03-06 01:09] LABS: ADENOVIRUS F 40/41 Not Detected (Not Detected); ASTROVIRUS Not Detected (Not Detected); C DIFFICILE TOXIN A/B Not Detected (Not Detected); CAMPYLOBACTER Not Detected (Not Detected); CRYPTOSPORIDIUM Not Detected (Not Detected); CYCLOSPORA CAYETANENSIS Not Detected (Not Detected); ENTAMOEBA HISTOLYTICA Not Detected (Not Detected); ENTEROAGGREGATIVE E COLI Not Detected (Not Detected); ENTEROPATHOGENIC E COLI Not Detected (Not Detected); ENTEROTOXIGENIC E COLI Not Detected (Not Detected); GIARDIA LAMBLIA Not Detected (Not Detected); NOROVIRUS GI/GII Not Detected (Not Detected); PLESIOMONAS SHIGELLOIDES Not Detected (Not Detected); ROTAVIRUS A Not Detected (Not Detected); SALMONELLA Not Detected (Not Detected); SAPOVIRUS Not Detected (Not Detected); SHIGA-TOXIN-PRODUCING E COLI Not Detected (Not Detected); SHIGELLA/ENTEROINVASIVE E COLI Not Detected (Not Detected); VIBRIO Not Detected (Not Detected); VIBRIO CHOLERAE Not Detected (Not Detected); YERSINIA ENTEROCOLITICA Not Detected (Not Detected)
== END 2023-03-04 14:05 | disposition home or self-care (01) ==
LOC: JP.ED 09:42
DX: K52.9 Noninfective gastroenteritis and colitis, unspecified (principal); N30.01 Acute cystitis with hematuria; N17.9 Acute kidney failure, unspecified; E78.00 Pure hypercholesterolemia, unspecified; R63.4 Abnormal weight loss; Z79.899 Other long term (current) drug therapy; Z88.2 Allergy status to sulfonamides; Z68.20 Body mass index [BMI] 20.0-20.9, adult
CPT/HCPCS: 36415; 74177; 80053; 81001; 83690; 83735; 84443; 85025; 86140; 87086; 87088; 87186; 87493; 87507; 96365; 99284; J0696; J3490; J7030; Q9967

== ENCOUNTER 2024-01-24 09:11 | Inpatient (IN) | payer MEDICARE ==
[2024-01-24] MEDS: Sodium Chloride 0.9% 1,000 ML IV SCH ×2 (10:20→13:47)
[2024-01-24 10:21] LABS: BASOPHILS PERCENT AUTO 0.1 % (0.1-1.3); HEMATOCRIT 41.2 % (34.3-46.0); HEMOGLOBIN 15.1 g/dL (11.2-15.5); IMMATURE GRAN ABSOLUTE AUTO 0.04 K/uL (0.00-0.23); IMMATURE GRAN PERCENT AUTO 0.4 % (0.0-0.7); LYMPHOCYTES ABSOLUTE AUTO 0.82 K/uL (0.8-3.3); LYMPHOCYTES PERCENT AUTO 8.1 % (11.4-47.7); MEAN CORPUSCULAR HEMOGLOBIN 33.6 pg (31.6-35.5); MEAN CORPUSCULAR HGB CONC 36.7 g/dL (31.6-35.5); MEAN CORPUSCULAR VOLUME 91.6 fL (81.4-99.0); MONOCYTES ABSOLUTE AUTO 0.77 K/uL (0.20-0.90); MONOCYTES PERCENT AUTO 7.6 % (3.3-12.6); NEUTROPHILS ABSOLUTE AUTO 8.46 K/uL (1.0-7.6); NEUTROPHILS PERCENT AUTO 83.8 % (40.0-78.1); PLATELET COUNT,PLT 311 K/uL (130-375); WHITE BLOOD CELL COUNT,WBC 10.1 K/uL (3.2-11.0)
[2024-01-24] MEDS: HYDROmorphone 0.5 MG/0.5 ML Syringe IVPUSH ONE (10:23)
[2024-01-24] MEDS: Ondansetron 4 MG/2 ML SDV IVPUSH ONE (10:23)
[2024-01-24 10:24] LABS: BASOPHILS ABSOLUTE AUTO 0.01 K/uL (0.00-0.10)
[2024-01-24 10:41] LABS: ALANINE AMINOTRANSFERASE,ALT 20 U/L (12-78); ALBUMIN 4.4 g/dL (3.4-5.0); ALKALINE PHOSPHATASE 92 U/L (46-116); ASPARTATE AMNIOTRANSFERASE,AST 21 U/L (15-37); BILIRUBIN TOTAL 0.6 mg/dL (0.2-1.0); BLOOD UREA NITROGEN,BUN 19 mg/dL (7-18); CALCIUM 10.8 mg/dL (8.5-10.1); CARBON DIOXIDE,CO2 26 mmol/L (21-32); CHLORIDE,CL 94 mmol/L (100-108); CREATININE 1.5 mg/dL (0.6-1.0); ESTIMATED GFR 38 mL/min (>60); GLUCOSE RANDOM 138 mg/dL (74-106); POTASSIUM,K 4.1 mmol/L (3.6-5.2); PROTEIN TOTAL,TP 8.9 g/dL (6.4-8.2); SODIUM,NA 134 mmol/L (140-148)
[2024-01-24 10:42] LABS: ANION GAP 18.1 mmol/L (5.0-14.0)
[2024-01-24] MEDS: Lidocaine 4% Top Soln 50 ML Bottle MUCMEM ONE (12:42)
[2024-01-24] MEDS ORDERED: Acetaminophen 325 MG Tab PO PRN (13:09)
[2024-01-24] MEDS ORDERED: Sodium Chloride 0.9% 10 ML Syringe FLUSH PRN (13:09)
[2024-01-24] MEDS ORDERED: Naloxone 0.4 MG/ML SDV IVPUSH PRN (13:09)
[2024-01-24] MEDS: HYDROmorphone 0.5 MG/0.5 ML Syringe IVPUSH PRN (13:43)
[2024-01-24] MEDS: Enoxaparin 40 MG/0.4 ML Syringe SUBCUT SCH (13:45)
[2024-01-24] MEDS: Pantoprazole 40 MG Vial IV SCH (13:46)
[2024-01-24] MEDS: Ondansetron 4 MG/2 ML SDV IV PRN (14:05)
[2024-01-25 06:42] LABS: ANION GAP 12.8 mmol/L (5.0-14.0); CALCIUM 8.7 mg/dL (8.5-10.1); EST CRCL DRUG DOSING (CG) 49.71 mL/min; MAGNESIUM 1.7 mg/dL (1.8-2.4)
[2024-01-25 06:46] LABS: HEMATOCRIT 36.9 % (34.3-46.0); HEMOGLOBIN 12.9 g/dL (11.2-15.5); MEAN CORPUSCULAR HEMOGLOBIN 33.5 pg (31.6-35.5); MEAN CORPUSCULAR VOLUME 95.8 fL (81.4-99.0); RED BLOOD CELL COUNT 3.85 M/uL (3.77-5.24); WHITE BLOOD CELL COUNT,WBC 8.1 K/uL (3.2-11.0)
[2024-01-25] MEDS: Magnesium Sulfate/Water 2 GM in Premix Bag 1 BAG IV SCH (08:55)
[2024-01-25] MEDS: Sodium Chloride 0.9% 1,000 ML IV SCH (16:06)
[2024-01-26 04:51] LABS: CALCIUM 8.4 mg/dL (8.5-10.1); CREATININE 0.8 mg/dL (0.6-1.0); EST CRCL DRUG DOSING (CG) 62.24 mL/min; POTASSIUM,K 3.3 mmol/L (3.6-5.2)
[2024-01-26 04:52] LABS: ANION GAP 19.3 mmol/L (5.0-14.0)
[2024-01-26] MEDS: oxyCODONE 5 MG Tab PO PRN (08:07)
[2024-01-26] MEDS: Sodium Chloride 0.9% 1,000 ML IV SCH ×3 (09:15→16:10)
[2024-01-26] MEDS: Potassium Chloride 10 MEQ in Premix Bag 1 BAG IV SCH ×2 (09:16→13:53)
[2024-01-26] MEDS: Diatrizoate Meglumine/Diatrizoate Sodium 37% 120 ML Bottle PO PRN (12:14)
[2024-01-27] MEDS: atorvaSTATin 20 MG Tab PO SCH (21:14)
[2024-01-28 10:29] LABS: APPEARANCE,URINE CLEAR (CLEAR); BILIRUBIN,URINE NEGATIVE (NEGATIVE); COLOR,URINE YELLOW (YELLOW); GLUCOSE,URINE NEGATIVE (NEGATIVE); KETONES,URINE NEGATIVE (NEGATIVE); LEUKOCYTE ESTERASE,URINE SMALL (NEGATIVE); NITRITE,URINE NEGATIVE (NEGATIVE); OCCULT BLOOD,URINE TRACE-INTACT (NEGATIVE); PROTEIN,URINE 30 mg/dL (NEGATIVE)
[2024-01-28 10:41] LABS: AMORPHOUS SEDIMENT,URINE RARE; BACTERIA,URINE MODERATE; EPITHELIAL CELLS,URINE RARE; MUCUS,URINE NOT SEEN; RBC,URINE 0-5 (0-5); WBC,URINE 20-30 (0-5)
== END 2024-01-28 10:50 | disposition home or self-care (01) | DRG 389 ==
LOC: JP.ED 09:11 → JP.MS 11:53
PROVIDERS: ADMIT Hospitalist; ATTEND Hospitalist
PROC: 0D9670Z Drainage of Stomach with Drainage Device, Via Natural or Artificial Opening (ICD-10-PCS; principal; 2024-01-24)
DX: K56.609 Unspecified intestinal obstruction, unspecified as to partial versus complete obstruction (principal); K56.600 Partial intestinal obstruction, unspecified as to cause; N17.9 Acute kidney failure, unspecified; N31.9 Neuromuscular dysfunction of bladder, unspecified; E78.00 Pure hypercholesterolemia, unspecified; H54.7 Unspecified visual loss; Z98.890 Other specified postprocedural states; Z90.710 Acquired absence of both cervix and uterus; Z85.41 Personal history of malignant neoplasm of cervix uteri; Z88.2 Allergy status to sulfonamides; Z79.899 Other long term (current) drug therapy; Z86.010 Personal history of colon polyps; Z86.16 Personal history of COVID-19; Z90.89 Acquired absence of other organs; Z90.722 Acquired absence of ovaries, bilateral; Z90.79 Acquired absence of other genital organ(s); Z90.49 Acquired absence of other specified parts of digestive tract; Z87.891 Personal history of nicotine dependence; Z97.8 Presence of other specified devices
CPT/HCPCS: 36415; 43752 ×2; 74176 ×2; 80053; 83605; 83690; 85025; 96361; 96374; 96375; 99285 ×2; J1170; J2405; J7030; 74021; 74021-26; 74250; 74250-26; 80048; 81001; 83735; 85027; 99222; 99232; 99238; A9270-GY; J1650; J2470; J3475; J3480; Q9963

== ENCOUNTER 2024-03-04 05:24 | Inpatient (IN) | payer MEDICARE ==
[2024-03-04] MEDS ORDERED: Naloxone 0.4 MG/ML SDV IVPUSH PRN (06:00)
[2024-03-04 06:24] LABS: BASOPHILS ABSOLUTE AUTO 0.03 K/uL (0.00-0.10); BASOPHILS PERCENT AUTO 0.2 % (0.1-1.3); HEMATOCRIT 42.4 % (34.3-46.0); HEMOGLOBIN 15.8 g/dL (11.2-15.5); IMMATURE GRAN ABSOLUTE AUTO 0.03 K/uL (0.00-0.23); IMMATURE GRAN PERCENT AUTO 0.2 % (0.0-0.7); LYMPHOCYTES ABSOLUTE AUTO 0.48 K/uL (0.8-3.3); LYMPHOCYTES PERCENT AUTO 3.5 % (11.4-47.7); MEAN CORPUSCULAR HEMOGLOBIN 34.4 pg (31.6-35.5); MEAN CORPUSCULAR HGB CONC 37.3 g/dL (31.6-35.5); MEAN CORPUSCULAR VOLUME 92.4 fL (81.4-99.0); MONOCYTES ABSOLUTE AUTO 0.56 K/uL (0.20-0.90); MONOCYTES PERCENT AUTO 4.1 % (3.3-12.6); NEUTROPHILS ABSOLUTE AUTO 12.59 K/uL (1.0-7.6); PLATELET COUNT,PLT 301 K/uL (130-375); RED BLOOD CELL COUNT 4.59 M/uL (3.77-5.24); WHITE BLOOD CELL COUNT,WBC 13.7 K/uL (3.2-11.0)
[2024-03-04 06:40] LABS: ALANINE AMINOTRANSFERASE,ALT 19 U/L (12-78); ALBUMIN 4.8 g/dL (3.4-5.0); ALKALINE PHOSPHATASE 103 U/L (46-116); ASPARTATE AMNIOTRANSFERASE,AST 23 U/L (15-37); BILIRUBIN TOTAL 0.5 mg/dL (0.2-1.0); BLOOD UREA NITROGEN,BUN 17 mg/dL (7-18); CALCIUM 10.5 mg/dL (8.5-10.1); CARBON DIOXIDE,CO2 21 mmol/L (21-32); CHLORIDE,CL 92 mmol/L (100-108); CREATININE 1.3 mg/dL (0.6-1.0); EST CRCL DRUG DOSING (CG) 36.76 mL/min; ESTIMATED GFR 45 mL/min (>60); GLUCOSE RANDOM 228 mg/dL (74-106); POTASSIUM,K 3.9 mmol/L (3.6-5.2); PROTEIN TOTAL,TP 9.6 g/dL (6.4-8.2); SODIUM,NA 130 mmol/L (140-148)
[2024-03-04 06:44] LABS: ANION GAP 20.9 mmol/L (5.0-14.0)
[2024-03-04 06:45] LABS: C-REACTIVE PROTEIN < 0.50 mg/dL (<0.50)
[2024-03-04] MEDS: HYDROmorphone 0.5 MG/0.5 ML Syringe IVPUSH ONE (07:00)
[2024-03-04] MEDS: Sodium Chloride 0.9% 1,000 ML IV SCH (07:04)
[2024-03-04] MEDS: droPERidol 5 MG/2 ML SDV IVPUSH ONE (07:04)
[2024-03-04] MEDS: Iopamidol 612 MG/ML 100 ML Bottle IV ONE (07:27)
[2024-03-04] MEDS: Sodium Chloride 0.9% 80 ML IV SCH (07:27)
[2024-03-04] MEDS ORDERED: Benzocaine/Cetylpyridinium/Menthol Lozenge MUCMEM PRN (09:56)
[2024-03-04] MEDS ORDERED: Sennosides/Docusate Sodium 50-8.6 MG Tab PO PRN (09:56)
[2024-03-04] MEDS ORDERED: Magnesium Hydroxide 400 MG/5 ML Susp 30 ML Cup PO PRN (09:56)
[2024-03-04] MEDS ORDERED: Acetaminophen 325 MG Tab PO PRN (09:56)
[2024-03-04] MEDS ORDERED: Ondansetron 4 MG Tab.DIS PO PRN (09:56)
[2024-03-04] MEDS: HYDROmorphone 0.5 MG/0.5 ML Syringe IVPUSH PRN (10:18)
[2024-03-04] MEDS: NS + KCl 20mEq/L 1,000 ML IV SCH (10:47)
[2024-03-04] MEDS: Ondansetron 4 MG/2 ML SDV IV PRN (15:49)
[2024-03-04] MEDS: Lidocaine 4% Top Soln 50 ML Bottle MUCMEM ONE (16:46)
[2024-03-04] MEDS: Pantoprazole 40 MG Vial IVPUSH SCH (21:58)
[2024-03-05 06:24] LABS: HEMATOCRIT 36.8 % (34.3-46.0); HEMOGLOBIN 13.2 g/dL (11.2-15.5); MEAN CORPUSCULAR HEMOGLOBIN 33.4 pg (31.6-35.5); MEAN CORPUSCULAR HGB CONC 35.9 g/dL (31.6-35.5); MEAN CORPUSCULAR VOLUME 93.2 fL (81.4-99.0); RED BLOOD CELL COUNT 3.95 M/uL (3.77-5.24); WHITE BLOOD CELL COUNT,WBC 7.9 K/uL (3.2-11.0)
[2024-03-05 06:25] LABS: CALCIUM 9.1 mg/dL (8.5-10.1); CREATININE 0.9 mg/dL (0.6-1.0); EST CRCL DRUG DOSING (CG) 54.58 mL/min; MAGNESIUM 1.8 mg/dL (1.8-2.4); POTASSIUM,K 4.6 mmol/L (3.6-5.2)
[2024-03-05 06:47] LABS: ANION GAP 19.6 mmol/L (5.0-14.0)
[2024-03-06 06:18] LABS: CREATININE 0.9 mg/dL (0.6-1.0); EST CRCL DRUG DOSING (CG) 54.58 mL/min
[2024-03-06] MEDS: Acetaminophen/HYDROcodone 325-5 MG Tab PO PRN (08:28)
[2024-03-06] MEDS ORDERED: atorvaSTATin 20 MG Tab PO SCH (21:00)
[2024-03-06] MEDS ORDERED: Non-Formulary Medication 1 Each (Simvastatin [Simvastatin] 40 MG Tablet) PO SCH (21:00)
[2024-03-07] MEDS ORDERED: Non-Formulary Medication 1 Each (Multivitamin With Minerals [Multiple Vitamin] 1 EACH Tabl PO SCH (09:00)
[2024-03-07] MEDS ORDERED: Multivitamins with Iron/Calcium/Folic Acid/Minerals Tab PO SCH (09:00)
== END 2024-03-06 14:23 | disposition home or self-care (01) | DRG 389 ==
LOC: JP.ED 05:24 → JP.MS 09:12
PROVIDERS: ADMIT Internal Medicine; ATTEND Internal Medicine
DX: K56.609 Unspecified intestinal obstruction, unspecified as to partial versus complete obstruction (principal); E87.20 Acidosis, unspecified; E86.0 Dehydration; D64.9 Anemia, unspecified; E78.00 Pure hypercholesterolemia, unspecified; Z79.899 Other long term (current) drug therapy; H54.7 Unspecified visual loss; Z88.2 Allergy status to sulfonamides; Z90.89 Acquired absence of other organs; Z90.710 Acquired absence of both cervix and uterus; Z86.16 Personal history of COVID-19; Z90.721 Acquired absence of ovaries, unilateral; Z98.890 Other specified postprocedural states; Z87.891 Personal history of nicotine dependence; Z86.010 Personal history of colon polyps
CPT/HCPCS: 36415; 74177; 80053; 83605; 85025; 86140; 96361; 96374; 96375; 99285; J1170; J1790; J3490; J7030; Q9967; 71045; 71045-26; 74019; 74019-26; 80048; 83735; 85027; 99222; 99232; 99239; A9270-GY; J2405; J2470; J3480

== ENCOUNTER 2024-04-19 18:47 | Inpatient (IN) | payer MEDICARE ==
[2024-04-19 19:31] LABS: BASOPHILS PERCENT AUTO 0.1 % (0.1-1.3); EOSINOPHILS PERCENT AUTO 0.1 % (0.0-5.4); HEMATOCRIT 42.8 % (34.3-46.0); HEMOGLOBIN 15.4 g/dL (11.2-15.5); IMMATURE GRAN PERCENT AUTO 0.2 % (0.0-0.7); LYMPHOCYTES ABSOLUTE AUTO 1.27 K/uL (0.8-3.3); MEAN CORPUSCULAR HEMOGLOBIN 33.9 pg (31.6-35.5); MEAN CORPUSCULAR VOLUME 94.3 fL (81.4-99.0); MONOCYTES ABSOLUTE AUTO 0.73 K/uL (0.20-0.90); MONOCYTES PERCENT AUTO 6.3 % (3.3-12.6); NEUTROPHILS ABSOLUTE AUTO 9.47 K/uL (1.0-7.6); NEUTROPHILS PERCENT AUTO 82.3 % (40.0-78.1); PLATELET COUNT,PLT 348 K/uL (130-375); RED BLOOD CELL COUNT 4.54 M/uL (3.77-5.24); WHITE BLOOD CELL COUNT,WBC 11.5 K/uL (3.2-11.0)
[2024-04-19 19:35] LABS: BASOPHILS ABSOLUTE AUTO 0.01 K/uL (0.00-0.10); EOSINOPHILS ABSOLUTE AUTO 0.01 K/uL (0.00-0.40); IMMATURE GRAN ABSOLUTE AUTO 0.02 K/uL (0.00-0.23)
[2024-04-19 19:51] LABS: A/G RATIO 0.9 (1.2-2.2); ALANINE AMINOTRANSFERASE,ALT 15 U/L (12-78); ALBUMIN 4.3 g/dL (3.4-5.0); ALKALINE PHOSPHATASE 89 U/L (46-116); ANION GAP 19.8 mmol/L (5.0-14.0); ASPARTATE AMNIOTRANSFERASE,AST 19 U/L (15-37); BILIRUBIN TOTAL 0.5 mg/dL (0.2-1.0); BLOOD UREA NITROGEN,BUN 31 mg/dL (7-18); C-REACTIVE PROTEIN 0.94 mg/dL (<0.50); CALCIUM 10.2 mg/dL (8.5-10.1); CARBON DIOXIDE,CO2 24 mmol/L (21-32); CHLORIDE,CL 98 mmol/L (100-108); CREATININE 2.1 mg/dL (0.6-1.0); ESTIMATED GFR 25 mL/min (>60); GLUCOSE RANDOM 159 mg/dL (74-106); POTASSIUM,K 3.8 mmol/L (3.6-5.2); PROTEIN TOTAL,TP 9.2 g/dL (6.4-8.2); SODIUM,NA 138 mmol/L (140-148)
[2024-04-19] MEDS: HYDROmorphone 0.5 MG/0.5 ML Syringe IVPUSH ONE ×2 (19:52→22:25)
[2024-04-19] MEDS: Sodium Chloride 0.9% 1,000 ML IV SCH ×3 (19:52→23:52)
[2024-04-19] MEDS: Ondansetron 4 MG/2 ML SDV IVPUSH ONE (19:52)
[2024-04-19 21:51] LABS: APPEARANCE,URINE CLEAR (CLEAR); BILIRUBIN,URINE NEGATIVE (NEGATIVE); COLOR,URINE YELLOW (YELLOW); GLUCOSE,URINE NEGATIVE (NEGATIVE); KETONES,URINE NEGATIVE (NEGATIVE); LEUKOCYTE ESTERASE,URINE NEGATIVE (NEGATIVE); NITRITE,URINE POSITIVE (NEGATIVE); OCCULT BLOOD,URINE NEGATIVE (NEGATIVE); PH,URINE 5.5 (5.0-8.0); PROTEIN,URINE 30 mg/dL (NEGATIVE); UROBILINOGEN,URINE 0.2 EU/dL (0.2-1.0)
[2024-04-19 21:53] LABS: RBC,URINE NOT SEEN (0-5); WBC,URINE 0-5 (0-5)
[2024-04-19 21:54] LABS: AMORPHOUS SEDIMENT,URINE RARE; BACTERIA,URINE MANY; EPITHELIAL CELLS,URINE MODERATE; MUCUS,URINE NOT SEEN
[2024-04-19] MEDS: Lidocaine 4% Top Soln 50 ML Bottle MUCMEM ONE ×2 (22:54→23:22)
[2024-04-19] MEDS ORDERED: HYDROmorphone 1 MG/ML Syringe IVPUSH PRN (23:06)
[2024-04-19] MEDS ORDERED: Acetaminophen 325 MG Tab PO PRN (23:06)
[2024-04-19] MEDS: Pantoprazole 40 MG Vial IVPUSH SCH (23:47)
[2024-04-19] MEDS: cefTRIAXone 1 GM in Sodium Chloride 0.9% 50 ML IV SCH (23:53)
[2024-04-20] MEDS: HYDROmorphone 0.5 MG/0.5 ML Syringe IVPUSH PRN ×2 (04:30→15:41)
[2024-04-20 05:28] LABS: ANION GAP 11.2 mmol/L (5.0-14.0); CALCIUM 8.4 mg/dL (8.5-10.1); CREATININE 1.4 mg/dL (0.6-1.0); EST CRCL DRUG DOSING (CG) 35.52 mL/min; HEMATOCRIT 34.9 % (34.3-46.0); HEMOGLOBIN 12.1 g/dL (11.2-15.5); MEAN CORPUSCULAR HEMOGLOBIN 33.9 pg (31.6-35.5); MEAN CORPUSCULAR HGB CONC 34.7 g/dL (31.6-35.5); MEAN CORPUSCULAR VOLUME 97.8 fL (81.4-99.0); POTASSIUM,K 3.8 mmol/L (3.6-5.2); RED BLOOD CELL COUNT 3.57 M/uL (3.77-5.24); WHITE BLOOD CELL COUNT,WBC 8.4 K/uL (3.2-11.0)
[2024-04-20] MEDS ORDERED: Diatrizoate Meglumine/Diatrizoate Sodium 37% 120 ML Bottle PO SCH (10:00)
[2024-04-20] MEDS: Ondansetron 4 MG/2 ML SDV IV PRN (11:25)
[2024-04-20] MEDS: Benzocaine/Cetylpyridinium/Menthol Lozenge MUCMEM PRN (13:29)
[2024-04-20] MEDS: Sodium Chloride 0.9% 1,000 ML IV SCH (15:46)
[2024-04-20] MEDS: HYDROmorphone 1 MG/ML Syringe IVPUSH PRN (18:24)
[2024-04-20] MEDS: Phenol/Sodium Phenolate Spray 180 ML Bottle MUCMEM PRN (20:24)
[2024-04-20] MEDS: LORazepam 2 MG/ML SDV IVPUSH PRN (22:45)
[2024-04-21] MEDS: Melatonin 3 MG Tab PO PRN (03:45)
[2024-04-21 05:46] LABS: CALCIUM 9.4 mg/dL (8.5-10.1); CREATININE 1.1 mg/dL (0.6-1.0); EST CRCL DRUG DOSING (CG) 45.2 mL/min; MAGNESIUM 1.8 mg/dL (1.8-2.4)
[2024-04-21] MEDS: Diatrizoate Meglumine/Diatrizoate Sodium 37% 120 ML Bottle PO SCH (10:41)
[2024-04-22 05:54] LABS: CALCIUM 8.8 mg/dL (8.5-10.1); EST CRCL DRUG DOSING (CG) 49.72 mL/min; POTASSIUM,K 3.2 mmol/L (3.6-5.2)
[2024-04-22 06:02] LABS: ANION GAP 12.2 mmol/L (5.0-14.0)
[2024-04-22] MEDS: Potassium Chloride 20 MEQ Tab.ER PO ONE ×2 (09:24→17:14)
[2024-04-22] MEDS: Ondansetron 4 MG Tab.DIS PO PRN (10:47)
[2024-04-22] MEDS: Cephalexin 250 MG Cap PO SCH (12:35)
[2024-04-22] MEDS: oxyCODONE 5 MG Tab PO PRN (16:02)
[2024-04-23] MEDS: Pantoprazole 40 MG Tab.CR PO SCH (09:28)
== END 2024-04-23 11:20 | disposition home or self-care (01) | DRG 683 ==
LOC: JP.ED 18:47 → JP.MS 22:41
PROVIDERS: ADMIT Registered Nurse; ATTEND Internal Medicine
DX: N17.9 Acute kidney failure, unspecified (principal); K56.609 Unspecified intestinal obstruction, unspecified as to partial versus complete obstruction; N30.00 Acute cystitis without hematuria; E86.0 Dehydration; E78.00 Pure hypercholesterolemia, unspecified; H54.7 Unspecified visual loss; D64.9 Anemia, unspecified; N31.2 Flaccid neuropathic bladder, not elsewhere classified; E87.6 Hypokalemia; Z88.2 Allergy status to sulfonamides; Z90.710 Acquired absence of both cervix and uterus; Z79.899 Other long term (current) drug therapy; Z86.16 Personal history of COVID-19; Z90.721 Acquired absence of ovaries, unilateral; Z98.890 Other specified postprocedural states; Z86.001 Personal history of in-situ neoplasm of cervix uteri; Z86.0100 Personal history of colon polyps, unspecified
CPT/HCPCS: 36415; 74176; 80053; 81001; 85025; 86140; 87086; 87088; 87186; 96361; 96374; 96375; 96376; 99285 ×2; J1171 ×2; J2405; J7030 ×2; 74018; 74018-26; 74019; 74019-26; 80048; 83735; 84132; 85027; 99223; 99232; 99238; A9270-GY; J0696; J2060; J2470; J3490; Q0162; Q9963

== ENCOUNTER 2024-05-29 05:50 | Day surgery (SDC) | payer MEDICARE ==
[2024-05-29] MEDS ORDERED: Bupivacaine 0.5% 50 ML MDV ONE (06:34)
[2024-05-29] MEDS: Dextrose 5%-Lactated Ringers 1,000 ML IV SCH (06:47)
[2024-05-29] MEDS: Scopalamine 1mg/3day Transdermal Patch TOP SCH (06:51)
[2024-05-29] MEDS ORDERED: fentaNYL 250 MCG/5 ML SDV ONE (07:10)
[2024-05-29] MEDS ORDERED: Rocuronium 50 MG/5 ML Vial ONE ×2 (07:11→08:49)
[2024-05-29] MEDS ORDERED: Dexamethasone 4 MG/ML SDV ONE (07:11)
[2024-05-29] MEDS ORDERED: Succinylcholine 200 MG/10 ML MDV ONE (07:11)
[2024-05-29] MEDS ORDERED: Propofol 200 MG/20 ML SDV ONE (07:11)
[2024-05-29] MEDS ORDERED: Ondansetron 4 MG/2 ML SDV ONE (07:11)
[2024-05-29] MEDS ORDERED: Neostigmine Methylsulfate 10 MG/10 ML MDV ONE (07:11)
[2024-05-29] MEDS ORDERED: Glycopyrrolate 0.2 MG/ML 5 ML MDV ONE (07:11)
[2024-05-29] MEDS: ceFAZolin 2 GM in Premix Bag 1 BAG IV ONE (07:30)
[2024-05-29] MEDS: Bupivacaine 0.25%/EPINEPHrine 1:200,000 30 ML SDV ONE (07:52)
[2024-05-29] MEDS ORDERED: fentaNYL 100 MCG/2 ML SDV ONE (09:20)
[2024-05-29] MEDS: oxyCODONE 5 MG Tab PO PRN (11:00)
[2024-05-29] MEDS: Acetaminophen 500 MG Tab PO SCH (11:00)
[2024-05-29] MEDS: SCOPOLAMINE PATCH CHECK TOP SCH (14:03)
== END 2024-05-29 13:50 | disposition home or self-care (01) ==
LOC: JP.SDSSCHI 05:50 → JP.SDS 05:50 → UNDOADMIN 05:50 → EDSTATUS 07:30 → UNDODISIN 13:50 → JP.SDS 13:50
PROVIDERS: ATTEND Surgery
DX: K56.609 Unspecified intestinal obstruction, unspecified as to partial versus complete obstruction (principal); K56.50 Intestinal adhesions [bands], unspecified as to partial versus complete obstruction; E78.5 Hyperlipidemia, unspecified; Z87.891 Personal history of nicotine dependence; Z88.2 Allergy status to sulfonamides
CPT/HCPCS: 49321; A9270; J0330; J0690; J1100; J1596; J2405; J2704; J2710; J3010; J7121; 00790-QZ; 88304; J0665; J3490